=== PATIENT | female | born 1990 | race Caucasian/White ===

== ENCOUNTER 2017-06-03 19:52 | Inpatient (IN) | payer OTHER ==
[~2017-06-03] VITALS: Ht 157.5 cm; Wt 61.2 kg
[2017-06-06] MEDS ORDERED: INTEGRA PLUS C1 EACH PO (12:54)
== END 2017-06-06 14:09 | disposition home or self-care (01) | DRG 812 ==
LOC: ER 19:52 → SEC-K 06-04 21:44 → MEDJ 06-05 10:09
PROC: 30233N1 Transfusion of Nonautologous Red Blood Cells into Peripheral Vein, Percutaneous Approach (ICD-10-PCS; principal; 2017-06-04)
PROC: BW21Y0Z Computerized Tomography (CT Scan) of Abdomen and Pelvis using Other Contrast, Unenhanced and Enhanced (ICD-10-PCS; 2017-06-04)
DX: D64.89 Other specified anemias (principal); R10.31 Right lower quadrant pain